=== PATIENT | female | born 1980 | race Caucasian/White ===

== ENCOUNTER → 2018-08-10 | Outpatient (CLI) | payer OTHER | END | disposition home or self-care (01) | LOC: MAMO-SONO 07:20 | DX: Z12.31 Encounter for screening mammogram for malignant neoplasm of breast (principal); N64.4 Mastodynia; N60.11 Diffuse cystic mastopathy of right breast ==

== ENCOUNTER 2018-10-28 15:25 | Outpatient (CLI) | payer OTHER | END 2018-10-28 17:03 | disposition home or self-care (01) | LOC: LAB 15:25 | DX: J11.1 Influenza due to unidentified influenza virus with other respiratory manifestations (principal) ==

== ENCOUNTER 2021-03-29 14:18 | Outpatient (CLI) | payer OTHER | END 2021-03-29 14:29 | disposition home or self-care (01) | LOC: SONOGRAMA 14:18 | PROVIDERS: ATTEND Obstetrics & Gynecology Maternal & Fetal Medicine | DX: N60.19 Diffuse cystic mastopathy of unspecified breast (principal); N63.0 Unspecified lump in unspecified breast ==

== ENCOUNTER 2022-06-23 11:27 | Outpatient (CLI) | payer OTHER | END 2022-06-23 11:35 | disposition home or self-care (01) | LOC: SONOGRAMA 11:27 | PROVIDERS: ATTEND Obstetrics & Gynecology Maternal & Fetal Medicine | DX: N63.0 Unspecified lump in unspecified breast (principal); N60.19 Diffuse cystic mastopathy of unspecified breast ==

== ENCOUNTER 2023-12-13 02:55 | Emergency (ER) | payer OTHER ==
[~2023-12-13] VITALS: Ht 160 cm; Wt 56.2 kg
== END 2023-12-13 04:33 | disposition home or self-care (01) ==
LOC: ER 02:55
DX: S09.8XXA Other specified injuries of head, initial encounter (principal); W19.XXXA Unspecified fall, initial encounter; Y93.89 Activity, other specified; Y92.098 Other place in other non-institutional residence as the place of occurrence of the external cause; Y99.8 Other external cause status

== ENCOUNTER 2025-01-03 11:58 | Outpatient (CLI) | payer OTHER | END 2025-01-03 12:00 | disposition home or self-care (01) | LOC: MAMO-SONO 11:58 | PROVIDERS: ATTEND Obstetrics & Gynecology Maternal & Fetal Medicine | DX: N63 Unspecified lump in breast (principal); Z12.31 Encounter for screening mammogram for malignant neoplasm of breast; N64.4 Mastodynia; N60.11 Diffuse cystic mastopathy of right breast ==